=== PATIENT | male | born 2000 | race Caucasian/White ===

== ENCOUNTER → 2023-10-23 | Outpatient (CLI) | payer OTHER | LOC: M PLAIMG 07:59 | PROVIDERS: ATTEND Physician Assistant | DX: R20.2 Paresthesia of skin (principal); R93.6 Abnormal findings on diagnostic imaging of limbs ==

== ENCOUNTER 2024-10-10 21:37 | Emergency (ER) | payer OTHER ==
[~2024-10-10] VITALS: Ht 175.3 cm; Wt 99.1 kg
[2024-10-10 22:22] LABS: KETONE, URINE AUTO RFX NEGATIVE (NEGATIVE); LEUKOCYTE ESTERASE UR AUTO RFX NEGATIVE (NEGATIVE); NITRITE, URINE AUTO RFX NEGATIVE (NEGATIVE); RBC, URINE AUTO RFX TNTC /HPF (0-3); SQUAM EPITHELIAL CELL UR AURFX 0 /HPF (0-6); WBC, URINE AUTO RFX 0 /HPF (0-3)
[2024-10-11] MEDS ORDERED: FLOM0.4C39 PO (01:27)
[2024-10-11 01:36] VITALS: BP 127/77; TEMP 97.2; O2SAT 96
== END 2024-10-11 01:57 | disposition home or self-care (01) ==
LOC: M ED 21:37
DX: N20.0 Calculus of kidney (principal); Z87.442 Personal history of urinary calculi

== ENCOUNTER 2024-10-29 18:05 | Emergency (ER) | payer OTHER ==
[~2024-10-29] VITALS: Ht 175.3 cm; Wt 98.3 kg
[~2024-10-29 18:05] MED LIST: FLOM0.4C39 PO
[2024-10-29 18:07] VITALS: TEMP 99
[2024-10-29] MEDS ORDERED: ONDANSETRON 4MG 2ML VIAL As Ordered ONE (18:29)
[2024-10-29] MEDS: ONDANSETRON 4MG 2ML VIAL IV ONE (18:30)
[2024-10-29] MEDS: KETOROLAC 30 MG/ML 1ML VIAL IV ONE (18:31)
[2024-10-29 18:55] LABS: BASO # 0.1 10^3/uL (0.0-0.2); BASO % 0.7 % (0.0-1.0); EOS # 0.2 10^3/uL (0.0-0.5); EOS % 2.7 % (0.0-3.0); HEMATOCRIT 42.9 % (42.0-52.0); HEMOGLOBIN 15.2 g/dl (13.5-17.5); LYMPH # 2.5 10^3/uL (1.5-5.0); LYMPH % 30.3 % (24.0-44.0); MEAN CORPUSCULAR HEMOGLOBIN 29.7 pg (27.0-33.0); MEAN CORPUSCULAR HGB CONC 35.4 g/dl (32.0-36.5); MONO # 0.5 10^3/uL (0.0-0.8); MONO % 6.1 % (2.0-8.0); PLATELET COUNT, AUTOMATED 318 10^3/uL (150-450); RED BLOOD COUNT 5.11 10^6/uL (4.30-6.10); WHITE BLOOD COUNT 8.4 10^3/uL (4.0-10.0)
[2024-10-29 19:03] LABS: KETONE, URINE AUTO RFX NEGATIVE (NEGATIVE); LEUKOCYTE ESTERASE UR AUTO RFX NEGATIVE (NEGATIVE); MUCUS, URINE RFX SMALL (NEGATIVE); NITRITE, URINE AUTO RFX NEGATIVE (NEGATIVE); RBC, URINE AUTO RFX 11 /HPF (0-3); SQUAM EPITHELIAL CELL UR AURFX 0 /HPF (0-6); WBC, URINE AUTO RFX 2 /HPF (0-3)
[2024-10-29 19:21] LABS: ALBUMIN 3.9 G/DL (3.2-5.2); BILIRUBIN,DIRECT 0.1 MG/DL (<0.4); BILIRUBIN,TOTAL 0.4 MG/DL (0.3-1.2); TOTAL PROTEIN 6.9 G/DL (5.7-8.2)
[2024-10-29] MEDS ORDERED: PERC5TAB12 PO (20:08)
[2024-10-29 20:11] VITALS: BP 125/75; O2SAT 100
== END 2024-10-29 20:13 | disposition home or self-care (01) ==
LOC: M ED 18:05
DX: N20.0 Calculus of kidney (principal); Z87.442 Personal history of urinary calculi; Z79.899 Other long term (current) drug therapy
CPT/HCPCS: 74176; 80047; 80076; 81001; 83690; 85025; 96374; 96375; 99284; J1885; J2405

== ENCOUNTER → 2024-11-02 | Outpatient (CLI) | payer OTHER ==
[~2024-11-02] MED LIST changes: +PERC5TAB12 PO
[2024-11-02 12:30] LABS: HEMATOCRIT 45.2 % (42.0-52.0); HEMOGLOBIN 15.8 g/dl (13.5-17.5); MEAN CORPUSCULAR HEMOGLOBIN 29.4 pg (27.0-33.0); PLATELET COUNT, AUTOMATED 314 10^3/uL (150-450); RED BLOOD COUNT 5.38 10^6/uL (4.30-6.10); WHITE BLOOD COUNT 7.8 10^3/uL (4.0-10.0)
[2024-11-02 12:59] LABS: BLOOD UREA NITROGEN 12 MG/DL (9-23); CALCIUM LEVEL 9.6 MG/DL (8.5-10.1); CARBON DIOXIDE LEVEL 30 MMOL/L (20-31); CHLORIDE LEVEL 103 MMOL/L (98-107); CREATININE FOR GFR 0.97 MG/DL (0.70-1.30); GLOMERULAR FILTRATION RATE > 60.0 (>60); GLUCOSE, FASTING 100 MG/DL (60-100); POTASSIUM SERUM 4.5 MMOL/L (3.5-5.1); SODIUM LEVEL 140 MMOL/L (136-145)
== END ==
LOC: M RAD 10:47
PROVIDERS: ATTEND Nurse Practitioner Family
DX: Z01.818 Encounter for other preprocedural examination (principal)

== ENCOUNTER → 2024-11-04 | Day surgery (SDC) | payer OTHER ==
[~2024-11-04] VITALS: Ht 175.3 cm; Wt 93.0 kg
[~2024-11-04] MED LIST changes: +LIDOCAINE 2% 100MG/5ML SDV (FOR ANES.) As Ordered ONE; +MIDAZOLAM INJ 2MG/2ML VIAL As Ordered ONE; +ONDANSETRON 4MG 2ML VIAL As Ordered ONE; +fentaNYL 100 MCG/2 ML INJECTION As Ordered ONE; +propofoL 200 MG/20 ML VIAL As Ordered ONE
== END | disposition home or self-care (01) ==
LOC: M SDC 09:59
PROVIDERS: ATTEND Urology
DX: N20.1 Calculus of ureter (principal); Z53.09 Procedure and treatment not carried out because of other contraindication

== ENCOUNTER 2024-11-15 11:46 | Day surgery (SDC) | payer OTHER ==
[~2024-11-15] VITALS: Ht 175.3 cm; Wt 95.3 kg
[~2024-11-15 11:46] MED LIST changes: -LIDOCAINE 2% 100MG/5ML SDV (FOR ANES.) As Ordered ONE; -MIDAZOLAM INJ 2MG/2ML VIAL As Ordered ONE; -ONDANSETRON 4MG 2ML VIAL As Ordered ONE; -fentaNYL 100 MCG/2 ML INJECTION As Ordered ONE; -propofoL 200 MG/20 ML VIAL As Ordered ONE
[2024-11-15] MEDS ORDERED: LR 1,000 ML IV SCH (12:10)
[2024-11-15] MEDS ORDERED: LIDOCAINE 2% INJ 100 MG/5 ML SYRINGE As Ordered ONE (12:40)
[2024-11-15] MEDS ORDERED: MIDAZOLAM INJ 2MG/2ML VIAL As Ordered ONE (12:40)
[2024-11-15] MEDS ORDERED: propofoL 200 MG/20 ML VIAL As Ordered ONE (12:40)
[2024-11-15] MEDS ORDERED: fentaNYL 100 MCG/2 ML INJECTION As Ordered ONE (12:40)
[2024-11-15] MEDS ORDERED: LIDOCAINE 2% 100MG/5ML SDV (FOR ANES.) As Ordered ONE (12:42)
[2024-11-15] MEDS: ceFAZolin SODIUM 2 GM VIAL As Ordered ONE (13:02)
[2024-11-15] MEDS: ISOVUE-300 61% 100ML VIAL As Ordered ONE (13:07)
[2024-11-15] MEDS: ceFAZolin SOD 2 GM IV ONCE IV ONE (13:10)
[2024-11-15] MEDS ORDERED: ACETAMINOPHEN 1000MG/100ML IV BAG As Ordered ONE (13:21)
[2024-11-15] MEDS ORDERED: oxyCODONE 5MG TAB PO PRN (13:30)
[2024-11-15] MEDS ORDERED: ONDANSETRON 4MG 2ML VIAL IV PRN (13:30)
[2024-11-15] MEDS ORDERED: fentaNYL 100 MCG/2 ML INJECTION IV PRN (13:30)
[2024-11-15] MEDS ORDERED: MACR100C43 PO (13:31)
[2024-11-15] MEDS ORDERED: OXYB5TAB14 PO (13:31)
[2024-11-15] MEDS ORDERED: PYRI1TAB5 PO (13:31)
[2024-11-15 14:25] VITALS: BP 120/70; TEMP 97.3; O2SAT 100
== END 2024-11-15 15:00 | disposition home or self-care (01) ==
LOC: M SDC 11:46
PROVIDERS: ATTEND Urology
DX: N20.1 Calculus of ureter (principal)
CPT/HCPCS: 52356; 76000; C1769; C2617; J0131; J0690; J2250; J3010; Q9967